=== PATIENT | female | born 1960 | race African-American/Black ===

== ENCOUNTER 2016-07-20 09:08 | Inpatient (IN) | payer OTHER ==
[2016-07-20 09:55] VITALS: BMI 20.9
--- NOTE | 2016-07-20 14:06 | HP ---
CIWA Score - CIWA Score Nausea/Vomitin-No Nausea/No Vomiting Muscle Tremors: 3 Anxiety: 4-Mod. Anxious/Guarded Agitation: 3 Paroxysmal Sweats: 1-Minimal Palms Moist Orientation: 0-Oriented Tacttile Disturbances: 3-Moderate Itch/Numb/Burn Auditory Disturbances: 0-None Visual Disturbances: 0-None Headache: 2-Mild CIWA-Ar Total Score: 16 Admission ROS BHS - HPI Chief Complaint: DETOX TX FOR ALCOHOL DEPENDENCE/ACUTE INTOXICATION Allergies/Adverse Reactions: Allergies Allergy/AdvReac Type Severity Reaction Status Date / Time No Known Allergies Allergy Verified 07/20/16 13:00 History of Present Illness: 55 Y/O AA/FEMALE WITH A HX OF ALCOHOL DEPENDENCE SEEKING DETOX TX. PT IS ON MMTP AT [facility]. Exam Limitations: No Limitations, Intoxication (JAYDEN 0.391 ON ARRIVAL JAYDEN 0.202 AT 2PM) - Ebola screening Have you traveled outside of the country in the last 21 days: No Have you had contact with anyone from an Ebola affected area: No Have you been sick,other than usual withdrawal symptoms: No - Review of Systems Constitutional: Chills, Loss of Appetite, Night Sweats, Changes in sleep, Unintentional Wgt. Loss EENT: reports: Blurred Vision, Tearing, Nose Congestion, Dental Problems (NO TEETH; WEARS DENTURES BUT NOT WITH PATIENT.) Respiratory: reports: Shortness of Breath (HX ASTHMA), Wheezing Cardiac: reports: Chest Pain, Lightheadedness GI: reports: Constipated, Diarrhea, Nausea, Poor Appetite, Poor Fluid Intake, Vomiting : reports: Burning, Frequency Musculoskeletal: reports: Back Pain, Joint Pain, Muscle Pain Integumentary: reports: No Symptoms Reported Neuro: reports: Headache, Tremors, Unsteady Gait, Dizziness Endocrine: reports: No Symptoms Reported Hematology: reports: Anemia Psychiatric: reports: Orientated x3, Agitated, Anxious, Depressed Other Systems: Reviewed and Negative Patient History - Patient Medical History Hx Anemia: Yes (NO CURRENT MED) Hx Asthma: Yes (Pt is on MDI.) Hx Chronic Obstructive Pulmonary Disease (COPD): No Hx Cancer: No Hx Cardiac Disorders: No Hx Congestive Heart Failure: No Hx Hypertension: Yes (on meds.) Hx Hypercholesterolemia: No Hx Pacemaker: No HX Cerebrovascular Accident: No Hx Seizures: No Hx Dementia: No Hx Diabetes: No Hx Gastrointestinal Disorders: No Hx Liver Disease: No Hx Genitourinary Disorders: No Hx Sexually Transmitted Disorders: Yes (GONORRHEA) Hx Renal Disease (ESRD): No Hx Thyroid Disease: No Hx Human Immunodeficiency Virus (HIV): No (NEGATIVE HX) Hx Hepatitis C: No Hx Depression: Yes (ON MEDS) Hx Suicide Attempt: Yes (JUMP IN FRONT OF THE TRAIN; DENIES CURRENT IDEATIONS.) Hx Schizophrenia: No - Patient Surgical History Past Surgical History: Yes Hx Neurologic Surgery: No Hx Cataract Extraction: No Hx Cardiac Surgery: No Hx Lung Surgery: No Hx Breast Surgery: No Hx Breast Biopsy: No Hx Abdominal Surgery: No Hx Appendectomy: No Hx Cholecystectomy: No Hx Genitourinary Surgery: No Hx Section: Yes (X 2) Anesthesia Reaction: No - PPD History Previous Implant?: Yes Documented Results: Negative w/o proof Implanted On Prior [facility] Admission?: Yes Date: 01/08/15 PPD to be Administered?: Yes - Reproductive History Patient is a Female of Child Bearing Age (11 -55 yrs old): Yes Last Menstrual Period: 04/26/16 Patient : No - Smoking Cessation Smoking history: Current every day smoker Have you smoked in the past 12 months: Yes Aproximately how many cigarettes per day: 20 Hx Chewing Tobacco Use: No Initiated information on smoking cessation: Yes 'Breaking Loose' booklet given: 07/20/16 - Substance & Tx. History Hx Alcohol Use: Yes Hx Substance Use: No (HEROIN) Substance Use Type: Alcohol Hx Substance Use Treatment: Yes (MMTP-H.E.L..PLAN) - Substances Abused Alcohol Route: Oral Frequency: Daily Amount used: 2 pint vodka Age of first use: 19 Date of Last Use: 07/20/16 Family Disease History - Family Disease History Family Disease History: Respiratory: Sister (asthma, drug dependencies ) Admission Physical Exam S - Vital Signs Vital Signs: Vital Signs - 24 hr 07/20/16 09:52 Temperature 97.0 F L Pulse Rate 66 Respiratory 18 Rate Blood Pressure 119/79 - Physical General Appearance: Yes: Moderate Distress, Alcohol on Breath, Intoxicated, Thin , Anxious HEENTM: Yes: EOMI, Normocephalic, IMTIAZ, Pharynx Normal, Nasal Congestion Respiratory: Yes: Chest Non-Tender, Lungs Clear, Normal Breath Sounds, No Respiratory Distress Neck: Yes: Supple, Trachea in good position Breast: Yes: Breast Exam Deferred Cardiology: Yes: Regular Rhythm, Regular Rate, S1, S2 Abdominal: Yes: Normal Bowel Sounds, Non Tender, Soft Genitourinary: Yes: Other Musculoskeletal: Yes: full range of Motion, Gait Steady Extremities: Yes: Normal Range of Motion, Non-Tender, Tremors Neurological: Yes: facility service associate II-XII NML intact, Fully Oriented, Alert Integumentary: Yes: Dry, Warm Lymphatic: Yes: Within Normal Limits - Diagnostic (1) Alcohol dependence with uncomplicated withdrawal Current Visit: Yes Status: Acute (2) Anemia Current Visit: Yes Status: Suspected Qualifiers: Iron deficiency anemia type: unspecified iron deficiency (3) GERD (gastroesophageal reflux disease) Current Visit: Yes Status: Chronic Qualifiers: Esophagitis presence: without esophagitis Qualified Code(s): K21.9 - Gastro-esophageal reflux disease without esophagitis (4) HTN (hypertension) Current Visit: Yes Status: Chronic Qualifiers: Hypertension type: essential hypertension Qualified Code(s): I10 - Essential (primary) hypertension (5) Nicotine dependence Current Visit: Yes Status: Acute Qualifiers: Nicotine product type: cigarettes Substance use status: in withdrawal Qualified Code(s): F17.213 - Nicotine dependence, cigarettes, with withdrawal (6) Asthma Current Visit: Yes Status: Chronic Qualifiers: Asthma severity: unspecified severity Asthma complication type: uncomplicated Qualified Code(s): J45.909 - Unspecified asthma, uncomplicated (7) Constipated Current Visit: Yes Status: Chronic Qualifiers: Constipation type: unspecified constipation type Qualified Code(s): K59.00 - Constipation, unspecified (8) Methadone maintenance therapy patient Current Visit: Yes Status: Chronic (9) Walker as ambulation aid Current Visit: Yes Status: Chronic Cleared for Admission [facility] - Detox or Rehab [facility] Level of Care: Medically Managed Detox Regimen/Protocol: Librium [facility] Breath Alcohol Content Breath Alcohol Content: 0.391 Urine Pregancy Test - Result Urine Test Results: Negative- NO Line Present Urine Drug Screen - Results Drug Screen Negative: No Urine Drug Screen Results: OPI-Opiates, BZO-Benzodiazepines, MTD-Methadone
[2016-07-20] MEDS ORDERED: MENTHOL/PHENOL 1 EACH UD MM PRN (14:29)
[2016-07-20] MEDS ORDERED: MAGNESIUM CITRATE 300 ML BOTTLE PO PRN (14:29)
[2016-07-20] MEDS ORDERED: MAGNESIUM HYDROX 2400MG/30ML ORAL SUSPENSION 30 ML CUP PO PRN (14:29)
[2016-07-20] MEDS ORDERED: guaiFENesin/D-METHORPHAN HB 10 ML UNIT-DOSE CUPS PO PRN (14:29)
[2016-07-20] MEDS ORDERED: NICOTINE POLACRILEX 4 MG GUM BUC PRN (14:29)
[2016-07-20] MEDS ORDERED: LOPERAMIDE HCL 2 MG CAPSULE PO PRN (14:29)
[2016-07-20] MEDS ORDERED: P-EPHED 60MG/TRIPROLIDI 2.5MG TABLET PO PRN (14:29)
[2016-07-20] MEDS ORDERED: ACETAMINOPHEN 325 MG TABLET (FP) PO PRN (14:29)
[2016-07-20] MEDS ORDERED: chlordiazePOXIDE HCL 25 MG CAPSULE PO ONE (15:02)
[2016-07-20] MEDS: NICOTINE 14 MG/24 HOURS TOPICAL PATCH TD SCH (15:27)
[2016-07-20] MEDS: chlordiazePOXIDE HCL 25 MG CAPSULE PO SCH ×2 (17:38→22:05)
[2016-07-20 18:20] LABS: URINE APPEARANCE CLOUDY; URINE BILIRUBIN NEGATIVE (NEGATIVE); URINE BLOOD NEGATIVE (NEGATIVE); URINE COLOR YELLOW; URINE GLUCOSE (UA) NEGATIVE (NEGATIVE); URINE KETONE NEGATIVE (NEGATIVE); URINE NITRITE NEGATIVE (NEGATIVE); URINE PROTEIN NEGATIVE (NEGATIVE); URINE UROBILINOGEN NEGATIVE E.U./dl (0.2-1.0)
[2016-07-20 18:23] LABS: URINE LEUK ESTERASE TRACE (NEGATIVE)
[2016-07-20 18:27] LABS: URINE BACTERIA RARE /hpf (NONE SEEN); URINE HYALINE CAST 3 /lpf; URINE MUCUS RARE; URINE RBC 1 /hpf (0-3); URINE WBC 4 /hpf (3-5)
[2016-07-20] MEDS: MAG HYDROX/AL HYDROX/SIMETH 30 ML UNIT-DOSE CUP PO PRN (19:32)
[2016-07-20] MEDS ORDERED: ALBUTEROL SO4 2.5/IPRATROPIUM 0.5 INH SOL 3 ML VIAL.NEB. NEB PRN (21:58)
[2016-07-20] MEDS: THIAMINE HCL 100 MG TABLET (FP) PO SCH (22:05)
[2016-07-21] MEDS: chlordiazePOXIDE HCL 25 MG CAPSULE PO SCH ×4 (05:54→22:17)
[2016-07-21] MEDS: MAG HYDROX/AL HYDROX/SIMETH 30 ML UNIT-DOSE CUP PO PRN (08:53)
[2016-07-21] MEDS: METHADONE HCL 10 MG TABLET PO SCH (10:15)
[2016-07-21 10:16] LABS: MCH 27.2 pg (25.7-33.7); MCHC 31.7 g/dl (32.0-36.0); MEAN CELL VOLUME 85.8 fl (80-96); MEAN PLT VOLUME 9.3 fl (7.5-11.1); PLATELET COUNT 148 K/MM3 (134-434); RDW 16.7 % (11.6-15.6); WHITE BLOOD COUNT 5.8 K/mm3 (4.0-10.0)
[2016-07-21] MEDS: chlordiazePOXIDE HCL 25 MG CAPSULE PO PRN (10:16)
[2016-07-21] MEDS: ONDANSETRON *ODT* 4 MG TABLET SL PRN (10:16)
[2016-07-21] MEDS: amLODIPine BESYLATE 5 MG TABLET (FP) PO SCH (10:16)
[2016-07-21] MEDS: PANTOPRAZOLE 40 MG TABLET (FP) PO SCH (10:16)
[2016-07-21] MEDS: ENALAPRIL MALEATE 10 MG TABLET (FP) PO SCH (10:16)
[2016-07-21] MEDS: PRENATAL VITAMINS W/ FOLIC ACID TABLET (FP) PO SCH (10:16)
[2016-07-21] MEDS: NICOTINE 14 MG/24 HOURS TOPICAL PATCH TD SCH (10:17)
--- NOTE | 2016-07-21 11:38 | PN ---
S CIWA - CIWA Score Nausea/Vomitin Muscle Tremors: 3 Anxiety: 4-Mod. Anxious/Guarded Agitation: 1-Slight > Activity Paroxysmal Sweats: 4-Forehead w/Sweat Beads Orientation: 0-Oriented Tacttile Disturbances: 2-Mild Itch/Numbness/Burn Auditory Disturbances: 0-None Visual Disturbances: 0-None Headache: 3-Moderate CIWA-Ar Total Score: 22 BHS Progress Note (SOAP) Subjective: Interrupted Sleep, Vomiting, Stomach Cramping, Tremors, Body Aches, Sweating, Fatigue. Objective: PT. A & O X 3. PT. DENIES CHEST PAIN. 07/21/16 11:34 Vital Signs Temperature 98.1 F 07/21/16 09:51 Pulse Rate 90 07/21/16 09:51 Respiratory Rate 16 07/21/16 09:51 Blood Pressure 148/102 07/21/16 09:51 O2 Sat by Pulse Oximetry (%) Laboratory Tests 07/20/16 07/21/16 15:44 06:00 WBC 5.8 RBC 5.57 H Hgb 15.1 Hct 47.8 H MCV 85.8 MCHC 31.7 L RDW 16.7 H Plt Count 148 MPV 9.3 Urine Color Yellow Urine Appearance Cloudy Urine pH 5.0 Ur Specific [place] 1.010 Urine Protein Negative Urine Glucose (UA) Negative Urine Ketones Negative Urine Blood Negative Urine Nitrite Negative Urine Bilirubin Negative Urine Urobilinogen Negative Ur Leukocyte Esterase Trace H Urine RBC 1 Urine WBC 4 Ur Epithelial Cells Moderate Urine Bacteria Rare Hyaline Casts 3 Urine Mucus Rare LABS NOTED. Assessment: 07/21/16 11:35 WITHDRAWAL SYMPTOMS. Plan: CONTINUE DETOX. REPEAT UA FOR ABNORMAL ADMISSION UA VALUES. PRN ZOEY FARR FOR VOMITING. ADVISED PATIENT TO FOLLOW-UP WITH SCADA ENGINEER AFTER DISCHARGE FROM DETOX FOR GENERAL MEDICAL ASSESSMENT AND FOR ABNORMAL ADMISSION CBC VALUES.
[2016-07-21] MEDS: IBUPROFEN 400 MG TABLET (FP) PO PRN (12:23)
[2016-07-21 12:25] LABS: ALK PHOS 118 U/L (45-117); ANION GAP 12 (8-16); BILIRUBIN,TOTAL 0.8 mg/dL (0.2-1.0); CALCIUM 9.2 mg/dL (8.5-10.1); CO2 27 mmol/L (21-32); COCKROFT - GAULT 85.5185; CREATININE 0.7 mg/dL (0.55-1.02); GLUCOSE,RANDOM 86 mg/dL (74-106); SGOT/AST 247 U/L (15-37); SGPT/ALT 117 U/L (12-78); TOT PROT 8.3 g/dl (6.4-8.2)
[2016-07-21 12:49] LABS: PLATELET ESTIMATE ADEQUATE (NORMAL)
[2016-07-21 14:41] LABS: URINE APPEARANCE CLEAR; URINE BILIRUBIN NEGATIVE (NEGATIVE); URINE BLOOD NEGATIVE (NEGATIVE); URINE COLOR YELLOW; URINE GLUCOSE (UA) NEGATIVE (NEGATIVE); URINE KETONE NEGATIVE (NEGATIVE); URINE NITRITE NEGATIVE (NEGATIVE); URINE PROTEIN NEGATIVE (NEGATIVE); URINE UROBILINOGEN NEGATIVE E.U./dl (0.2-1.0)
[2016-07-21 14:51] LABS: URINE LEUK ESTERASE TRACE (NEGATIVE)
--- NOTE | 2016-07-21 14:53 | CONSULT ---
[facility] Psychiatric Consult - Data Date of interview: 07/21/16 Admission source: [facility] Identifying data: Readmission to [facility] for this 55 y/o AA female seeking detox treatment for alcohol dependence.Patient is single,a mother of seven, domiciled,unemployed and supported on Public Assistance. Substance Abuse History: - Smoking Cessation. Smoking history: Current every day smoker. Have you smoked in the past 12 months: Yes. Aproximately how many cigarettes per day: 20. Hx Chewing Tobacco Use: No. Initiated information on smoking cessation: Yes. 'Breaking Loose' booklet given: 07/20/16. - Substance & Tx. History. Hx Alcohol Use: Yes. Hx Substance Use: No (HEROIN). Substance Use Type: Alcohol. Hx Substance Use Treatment: Yes (MMTP-H.E.L..PLAN). - Substances Abused. Alcohol. Route: Oral. Frequency: Daily. Amount used: 2 pint vodka. Age of first use: 19. Date of Last Use: 07/20/16. Confirmed. Medical History: Anemia,lower back pain,hypertension,bronchial asthma,GERD, cataracts and a history of treatment for gonorrhea. Psychiatric History: Diagnosed with Bipolar Disorder.Patient presents with a history of two psychiatric hospitalizations.Ms Michaud is known to [facility].She is currently followed at the [facility] outpatient program ([facility]).Used to be on gabapentin,ambien and seroquel (doses not recalled) .Patient admits to a history of suicide attempts (ingestion of rat poison, deliberate self-exposure to oncoming traffic,jumping from moving vehicles). Physical/Sexual Abuse/Trauma History: Patient declines to provide information. Additional Comment: Urine Drug Screen Results: OPI-Opiates, BZO-Benzodiazepines , MTD-Methadone.Noted. Mental Status Exam - Mental Status Exam Alert and Oriented to: Time, Place, Person Cognitive Function: Grossly Intact Patient Appearance: Well Groomed Mood: Nervous, Withdrawn Affect: Constricted Patient Behavior: Sedated, Fatigued, Cooperative Speech Pattern: Delayed, Slurred Voice Loudness: Moderately Soft/Quiet Thought Process: Goal Oriented (with prompting) Thought Disorder: Not Present Hallucinations: Denies Suicidal Ideation: Denies Homicidal Ideation: Denies Insight/Judgement: Poor Sleep: Poorly, Difficulty falling asleep (patient requests ambien) Appetite: Good Gait/Station: Other (uses a walker for ambulation) Psychiatric Findings - Problem List ([place] 1, 2,3) (1) Alcohol dependence with uncomplicated withdrawal Current Visit: Yes Status: Acute (2) Opioid dependence on agonist therapy Current Visit: Yes Status: Acute (3) Nicotine dependence Current Visit: Yes Status: Acute Qualifiers: Nicotine product type: cigarettes Substance use status: in withdrawal Qualified Code(s): F17.213 - Nicotine dependence, cigarettes, with withdrawal (4) Bipolar disorder Current Visit: Yes Status: Chronic Comment: Self-report. (5) Asthma Current Visit: Yes Status: Chronic Qualifiers: Asthma severity: unspecified severity Asthma complication type: uncomplicated Qualified Code(s): J45.909 - Unspecified asthma, uncomplicated (6) GERD (gastroesophageal reflux disease) Current Visit: Yes Status: Chronic Qualifiers: Esophagitis presence: without esophagitis Qualified Code(s): K21.9 - Gastro-esophageal reflux disease without esophagitis (7) HTN (hypertension) Current Visit: Yes Status: Chronic Qualifiers: Hypertension type: essential hypertension Qualified Code(s): I10 - Essential (primary) hypertension (8) Anemia Current Visit: Yes Status: Suspected Qualifiers: Iron deficiency anemia type: unspecified iron deficiency (9) Walker as ambulation aid Current Visit: Yes Status: Chronic (10) Insomnia Current Visit: Yes Status: Acute - Initial Treatment Plan Initial Treatment Plan: Psychoeducation.Detoxification.Medications : zoloft 50 mg po daily + risperdal 1 mg po bid.Verified by survey of pharmacy claims ( noted filled scripts for zoloft,risperdal on 06/22/16 and 07/03/16 @ the [facility].Side effects/benefits discussed with the patient.She agrees with careplan.Observation.No need for scripts at discharge.
[2016-07-21] MEDS: risperiDONE 1 MG TABLET (FP) PO SCH (22:17)
[2016-07-21] MEDS: THIAMINE HCL 100 MG TABLET (FP) PO SCH (22:17)
[2016-07-22] MEDS: METHADONE HCL 10 MG TABLET PO SCH (05:25)
[2016-07-22] MEDS: chlordiazePOXIDE HCL 25 MG CAPSULE PO SCH ×2 (05:26→10:20)
[2016-07-22] MEDS: IBUPROFEN 400 MG TABLET (FP) PO PRN ×2 (09:50→18:15)
[2016-07-22] MEDS: PRENATAL VITAMINS W/ FOLIC ACID TABLET (FP) PO SCH (10:18)
[2016-07-22] MEDS: ENALAPRIL MALEATE 10 MG TABLET (FP) PO SCH (10:18)
[2016-07-22] MEDS: risperiDONE 1 MG TABLET (FP) PO SCH ×2 (10:19→22:44)
[2016-07-22] MEDS: SERTRALINE HCL 50 MG TABLET (FP) PO SCH (10:19)
[2016-07-22] MEDS: ONDANSETRON *ODT* 4 MG TABLET SL PRN (10:19)
[2016-07-22] MEDS: PANTOPRAZOLE 40 MG TABLET (FP) PO SCH (10:19)
[2016-07-22] MEDS: amLODIPine BESYLATE 5 MG TABLET (FP) PO SCH (10:20)
[2016-07-22] MEDS: NICOTINE 14 MG/24 HOURS TOPICAL PATCH TD SCH (10:20)
[2016-07-22] MEDS: chlordiazePOXIDE HCL 25 MG CAPSULE PO PRN (12:14)
--- NOTE | 2016-07-22 14:54 | PN ---
S CIWA - CIWA Score Nausea/Vomitin Muscle Tremors: 4-Moderate,w/Arms Extend Anxiety: 2 Agitation: 0-Normal Activity Paroxysmal Sweats: 3 Orientation: 0-Oriented Tacttile Disturbances: 0-None Auditory Disturbances: 2-Mild Harshness/Frighten Visual Disturbances: 3-Moderate Sensitivity Headache: 0-None Present CIWA-Ar Total Score: 19 BHS Progress Note (SOAP) Subjective: Tremors, Vomiting, Stomach Cramping, Interrupted Sleep, Sweating. Objective: PT. A & O X 3, OBSERVED AMBULATING ON UNIT WITH ASSISTANCE OF A WALKER. 07/22/16 14:53 Vital Signs Temperature 98.2 F 07/22/16 14:15 Pulse Rate 96 H 07/22/16 14:15 Respiratory Rate 18 07/22/16 14:15 Blood Pressure 121/68 07/22/16 14:15 O2 Sat by Pulse Oximetry (%) Laboratory Tests 07/20/16 07/21/16 07/21/16 15:44 06:00 06:00 WBC 5.8 RBC 5.57 H Hgb 15.1 Hct 47.8 H MCV 85.8 MCHC 31.7 L RDW 16.7 H Plt Count 148 MPV 9.3 Neutrophils % 24.0 L Lymphocytes % 73.0 H Monocytes % 2.0 L Basophils % 1.0 Nucleated RBCs 4 H Differential Comment Manual diff done Platelet Estimate Adequate Sodium 141 Potassium 4.5 Chloride 102 Carbon Dioxide 27 Anion Gap 12 BUN 10 D Creatinine 0.7 D Creat Clearance w eGFR > 60 Random Glucose 86 Calcium 9.2 Total Bilirubin 0.8 AST 247 H D ALT 117 H D Alkaline Phosphatase 118 H Total Protein 8.3 H Albumin 4.0 Urine Color Yellow Urine Appearance Cloudy Urine pH 5.0 Ur Specific [place] 1.010 Urine Protein Negative Urine Glucose (UA) Negative Urine Ketones Negative Urine Blood Negative Urine Nitrite Negative Urine Bilirubin Negative Urine Urobilinogen Negative Ur Leukocyte Esterase Trace H Urine RBC 1 Urine WBC 4 Ur Epithelial Cells Moderate Urine Bacteria Rare Hyaline Casts 3 Urine Mucus Rare RPR Titer 07/21/16 07/21/16 06:00 12:45 WBC RBC Hgb Hct MCV MCHC RDW Plt Count MPV Neutrophils % Lymphocytes % Monocytes % Basophils % Nucleated RBCs Differential Comment Platelet Estimate Sodium Potassium Chloride Carbon Dioxide Anion Gap BUN Creatinine Creat Clearance w eGFR Random Glucose Calcium Total Bilirubin AST ALT Alkaline Phosphatase Total Protein Albumin Urine Color Yellow Urine Appearance Clear Urine pH 8.0 D Ur Specific [place] 1.015 Urine Protein Negative Urine Glucose (UA) Negative Urine Ketones Negative Urine Blood Negative Urine Nitrite Negative Urine Bilirubin Negative Urine Urobilinogen Negative Ur Leukocyte Esterase Trace H Urine RBC Urine WBC Ur Epithelial Cells Urine Bacteria Hyaline Casts Urine Mucus RPR Titer Nonreactive LABS NOTED. Assessment: 07/22/16 14:53 WITHDRAWAL SYMPTOMS. Plan: CONTINUE DETOX. HEPATIC FUNCTION PANEL FOR ABNORMAL ADMISSION LIVER ENZYME LEVELS. ADVISED PATIENT TO FOLLOW-UP WITH MANUFACTURING ASSOCIATE AFTER DISCHARGE FROM DETOX FOR GENERAL MEDICAL ASSESSMENT AND FOR ABNORMAL CBC AND LIVER ENZYME LEVELS.
[2016-07-22] MEDS: chlordiazePOXIDE 5 MG CAPSULE PO SCH ×2 (17:29→22:45)
[2016-07-22] MEDS: ALBUTEROL SO4 6.7 GM HFA INHALER IH PRN (19:56)
[2016-07-22] MEDS: diphenhydrAMINE HCL 50 MG CAPSULE PO PRN (22:45)
[2016-07-22] MEDS: THIAMINE HCL 100 MG TABLET (FP) PO SCH (22:45)
[2016-07-23] MEDS: diphenhydrAMINE HCL 50 MG CAPSULE PO PRN (02:14)
[2016-07-23] MEDS: chlordiazePOXIDE 5 MG CAPSULE PO SCH (05:38)
[2016-07-23 06:34] VITALS: TEMP 98.1
[2016-07-23] MEDS: METHADONE HCL 10 MG TABLET PO SCH (07:11)
[2016-07-23] MEDS: amLODIPine BESYLATE 5 MG TABLET (FP) PO SCH (09:28)
[2016-07-23] MEDS: PRENATAL VITAMINS W/ FOLIC ACID TABLET (FP) PO SCH (09:28)
[2016-07-23] MEDS: SERTRALINE HCL 50 MG TABLET (FP) PO SCH (09:29)
[2016-07-23] MEDS: PANTOPRAZOLE 40 MG TABLET (FP) PO SCH (09:29)
[2016-07-23] MEDS: ONDANSETRON *ODT* 4 MG TABLET SL PRN (09:29)
[2016-07-23] MEDS: ENALAPRIL MALEATE 10 MG TABLET (FP) PO SCH (09:29)
[2016-07-23] MEDS: ALBUTEROL SO4 6.7 GM HFA INHALER IH PRN (09:31)
[2016-07-23 09:55] LABS: ALBUMIN 3.5 g/dl (3.4-5.0); BILIRUBIN,DIRECT 0.3 mg/dL (0.0-0.2); BILIRUBIN,TOTAL 0.9 mg/dL (0.2-1.0); TOT PROT 7.3 g/dl (6.4-8.2)
--- NOTE | 2016-07-23 10:24 | PN ---
S Progress Note (SOAP) Subjective: Patient wants to leave today,her discharge is for tomorrow.She's alert coherent oriented x 3.pt. will sign out AMA.Moreover I told pt. that her OTP will be closed tomorrow,she tells me she knows how to get emergency dose. Objective: 07/23/16 10:22 Vital Signs - 8 hr 07/23/16 06:30 Temperature 98.1 F Pulse Rate 83 Respiratory 16 Rate Blood Pressure 113/75 Laboratory Tests 07/20/16 07/21/16 07/21/16 15:44 06:00 06:00 WBC 5.8 RBC 5.57 H Hgb 15.1 Hct 47.8 H MCV 85.8 MCHC 31.7 L RDW 16.7 H Plt Count 148 MPV 9.3 Neutrophils % 24.0 L Lymphocytes % 73.0 H Monocytes % 2.0 L Basophils % 1.0 Nucleated RBCs 4 H Differential Comment Manual diff done Platelet Estimate Adequate Sodium 141 Potassium 4.5 Chloride 102 Carbon Dioxide 27 Anion Gap 12 BUN 10 D Creatinine 0.7 D Creat Clearance w eGFR > 60 Random Glucose 86 Calcium 9.2 Total Bilirubin 0.8 Direct Bilirubin AST 247 H D ALT 117 H D Alkaline Phosphatase 118 H Ammonia Total Protein 8.3 H Albumin 4.0 Urine Color Yellow Urine Appearance Cloudy Urine pH 5.0 Ur Specific [place] 1.010 Urine Protein Negative Urine Glucose (UA) Negative Urine Ketones Negative Urine Blood Negative Urine Nitrite Negative Urine Bilirubin Negative Urine Urobilinogen Negative Ur Leukocyte Esterase Trace H Urine RBC 1 Urine WBC 4 Ur Epithelial Cells Moderate Urine Bacteria Rare Hyaline Casts 3 Urine Mucus Rare RPR Titer 07/21/16 07/21/16 07/23/16 06:00 12:45 06:20 WBC RBC Hgb Hct MCV MCHC RDW Plt Count MPV Neutrophils % Lymphocytes % Monocytes % Basophils % Nucleated RBCs Differential Comment Platelet Estimate Sodium Potassium Chloride Carbon Dioxide Anion Gap BUN Creatinine Creat Clearance w eGFR Random Glucose Calcium Total Bilirubin 0.9 Direct Bilirubin 0.3 H AST 70 H D ALT 65 D Alkaline Phosphatase 102 Ammonia Total Protein 7.3 Albumin 3.5 Urine Color Yellow Urine Appearance Clear Urine pH 8.0 D Ur Specific [place] 1.015 Urine Protein Negative Urine Glucose (UA) Negative Urine Ketones Negative Urine Blood Negative Urine Nitrite Negative Urine Bilirubin Negative Urine Urobilinogen Negative Ur Leukocyte Esterase Trace H Urine RBC Urine WBC Ur Epithelial Cells Urine Bacteria Hyaline Casts Urine Mucus RPR Titer Nonreactive 07/23/16 07:50 WBC RBC Hgb Hct MCV MCHC RDW Plt Count MPV Neutrophils % Lymphocytes % Monocytes % Basophils % Nucleated RBCs Differential Comment Platelet Estimate Sodium Potassium Chloride Carbon Dioxide Anion Gap BUN Creatinine Creat Clearance w eGFR Random Glucose Calcium Total Bilirubin Direct Bilirubin AST ALT Alkaline Phosphatase Ammonia 36.49 H Total Protein Albumin Urine Color Urine Appearance Urine pH Ur Specific [place] Urine Protein Urine Glucose (UA) Urine Ketones Urine Blood Urine Nitrite Urine Bilirubin Urine Urobilinogen Ur Leukocyte Esterase Urine RBC Urine WBC Ur Epithelial Cells Urine Bacteria Hyaline Casts Urine Mucus RPR Titer liver enzymes are grossly normal from admission's levels.Ammonia level 36.49 normal 32,slightly elevated. Assessment: 07/23/16 10:24 Withdrawal sx. Plan: Pt. signed out AMA
--- NOTE | 2016-07-23 10:30 | DS ---
[facility] Detox Discharge Summary Admission Date: 07/20/16 Discharge Date: 07/23/16 - History Present History: Alcohol Dependence, MMTP Pertinent Past History: Asthma GERD HTN - Physical Exam Results Vital Signs: Vital Signs Temperature 98.1 F 07/23/16 06:30 Pulse Rate 83 07/23/16 06:30 Respiratory Rate 16 07/23/16 06:30 Blood Pressure 113/75 07/23/16 06:30 O2 Sat by Pulse Oximetry (%) Pertinent Admission Physical Exam Findings: Withdrawal Sx. Laboratory Tests 07/20/16 07/21/16 07/21/16 15:44 06:00 06:00 WBC 5.8 RBC 5.57 H Hgb 15.1 Hct 47.8 H MCV 85.8 MCHC 31.7 L RDW 16.7 H Plt Count 148 MPV 9.3 Neutrophils % 24.0 L Lymphocytes % 73.0 H Monocytes % 2.0 L Basophils % 1.0 Nucleated RBCs 4 H Differential Comment Manual diff done Platelet Estimate Adequate Sodium 141 Potassium 4.5 Chloride 102 Carbon Dioxide 27 Anion Gap 12 BUN 10 D Creatinine 0.7 D Creat Clearance w eGFR > 60 Random Glucose 86 Calcium 9.2 Total Bilirubin 0.8 Direct Bilirubin AST 247 H D ALT 117 H D Alkaline Phosphatase 118 H Ammonia Total Protein 8.3 H Albumin 4.0 Urine Color Yellow Urine Appearance Cloudy Urine pH 5.0 Ur Specific [place] 1.010 Urine Protein Negative Urine Glucose (UA) Negative Urine Ketones Negative Urine Blood Negative Urine Nitrite Negative Urine Bilirubin Negative Urine Urobilinogen Negative Ur Leukocyte Esterase Trace H Urine RBC 1 Urine WBC 4 Ur Epithelial Cells Moderate Urine Bacteria Rare Hyaline Casts 3 Urine Mucus Rare RPR Titer 07/21/16 07/21/16 07/23/16 06:00 12:45 06:20 WBC RBC Hgb Hct MCV MCHC RDW Plt Count MPV Neutrophils % Lymphocytes % Monocytes % Basophils % Nucleated RBCs Differential Comment Platelet Estimate Sodium Potassium Chloride Carbon Dioxide Anion Gap BUN Creatinine Creat Clearance w eGFR Random Glucose Calcium Total Bilirubin 0.9 Direct Bilirubin 0.3 H AST 70 H D ALT 65 D Alkaline Phosphatase 102 Ammonia Total Protein 7.3 Albumin 3.5 Urine Color Yellow Urine Appearance Clear Urine pH 8.0 D Ur Specific [place] 1.015 Urine Protein Negative Urine Glucose (UA) Negative Urine Ketones Negative Urine Blood Negative Urine Nitrite Negative Urine Bilirubin Negative Urine Urobilinogen Negative Ur Leukocyte Esterase Trace H Urine RBC Urine WBC Ur Epithelial Cells Urine Bacteria Hyaline Casts Urine Mucus RPR Titer Nonreactive 07/23/16 07:50 WBC RBC Hgb Hct MCV MCHC RDW Plt Count MPV Neutrophils % Lymphocytes % Monocytes % Basophils % Nucleated RBCs Differential Comment Platelet Estimate Sodium Potassium Chloride Carbon Dioxide Anion Gap BUN Creatinine Creat Clearance w eGFR Random Glucose Calcium Total Bilirubin Direct Bilirubin AST ALT Alkaline Phosphatase Ammonia 36.49 H Total Protein Albumin Urine Color Urine Appearance Urine pH Ur Specific [place] Urine Protein Urine Glucose (UA) Urine Ketones Urine Blood Urine Nitrite Urine Bilirubin Urine Urobilinogen Ur Leukocyte Esterase Urine RBC Urine WBC Ur Epithelial Cells Urine Bacteria Hyaline Casts Urine Mucus RPR Titer labs noted,liver enzymes have return toward normal.Ammonia level slightly elevated. - Treatment Patient has Accepted a Rehab Referral to: OTP - Medication Discharge Medications: Ambulatory Orders Albuterol Sulfate Inhaler - [Ventolin HFA Inhaler -] 2 inh PO Q4H PRN 01/06/15 Enalapril Maleate [Vasotec -] 20 mg PO DAILY 01/06/15 Zolpidem Tartrate [Ambien -] 10 mg PO HS 01/06/15 Amlodipine Besylate [Norvasc -] 5 mg PO DAILY 07/20/16 Ibuprofen [Motrin -] 600 mg PO BID PRN 07/20/16 Sertraline HCl [Zoloft -] 50 mg PO DAILY 07/20/16 - Diagnosis (1) Alcohol dependence with uncomplicated withdrawal Current Visit: Yes Status: Acute (2) Insomnia Current Visit: Yes Status: Acute (3) Nicotine dependence Current Visit: Yes Status: Acute Qualifiers: Nicotine product type: cigarettes Substance use status: in withdrawal Qualified Code(s): F17.213 - Nicotine dependence, cigarettes, with withdrawal (4) Opioid dependence on agonist therapy Current Visit: Yes Status: Acute (5) Asthma Current Visit: Yes Status: Chronic Qualifiers: Asthma severity: unspecified severity Asthma complication type: uncomplicated Qualified Code(s): J45.909 - Unspecified asthma, uncomplicated (6) Bipolar disorder Current Visit: Yes Status: Chronic (7) GERD (gastroesophageal reflux disease) Current Visit: Yes Status: Chronic Qualifiers: Esophagitis presence: without esophagitis Qualified Code(s): K21.9 - Gastro-esophageal reflux disease without esophagitis (8) HTN (hypertension) Current Visit: Yes Status: Chronic Qualifiers: Hypertension type: essential hypertension Qualified Code(s): I10 - Essential (primary) hypertension - AMA Did Patient Leave Against Medical Advice: Yes
[2016-07-23 10:58] VITALS: BP 110/78; PULSE 75
[2016-07-23] MEDS ORDERED: chlordiazePOXIDE HCL 10 MG CAPSULE PO SCH (17:00)
--- NOTE | 2016-07-23 23:04 | EKG ---
Test Reason : Blood Pressure : / mmHG Vent. Rate : 062 BPM Atrial Rate : 062 BPM P-R Int : 168 ms QRS Dur : 088 ms QT Int : 420 ms P-R-T Axes : 068 063 054 degrees QTc Int : 426 ms NORMAL SINUS RHYTHM NORMAL ECG NO PREVIOUS ECGS AVAILABLE Confirmed by JAKI YANG MD ([id number]) on 07/23/2016 11:03:45 PM Referred By: Donavan Magallon Confirmed By:JAKI YANG MD
== END 2016-07-23 10:16 | disposition left against medical advice (07) | DRG 770 ==
LOC: YASAS 09:08 → Y6N 14:33
PROVIDERS: ADMIT Internal Medicine Addiction Medicine; ATTEND Internal Medicine Addiction Medicine
PROC: HZ2ZZZZ Detoxification Services for Substance Abuse Treatment (ICD-10-PCS; principal; 2016-07-20)
DX: F10.230 Alcohol dependence with withdrawal, uncomplicated (principal); F11.20 Opioid dependence, uncomplicated; F17.213 Nicotine dependence, cigarettes, with withdrawal; F31.9 Bipolar disorder, unspecified; D50.9 Iron deficiency anemia, unspecified; I10 Essential (primary) hypertension; G47.00 Insomnia, unspecified; J45.909 Unspecified asthma, uncomplicated; K21.9 Gastro-esophageal reflux disease without esophagitis; K59.00 Constipation, unspecified; R26.2 Difficulty in walking, not elsewhere classified; Z99.89 Dependence on other enabling machines and devices; Z87.42 Personal history of other diseases of the female genital tract; Z91.5 Personal history of self-harm
CPT/HCPCS: 36415; 80053; 80076; 81003; 81015; 82140; 85027; 86593; 93005; 93010; J2794